=== PATIENT | male | born 1975 | race Caucasian/White ===

== ENCOUNTER 2017-06-16 19:28 | Emergency (ER) | payer OTHER ==
[~2017-06-16] VITALS: Ht 172.7 cm; Wt 113.4 kg
[~2017-06-16 19:28] MED LIST: AMOX500 PO; AZIT250 PO; Aldactone50 MG PO; CEPH500 PO; CLIN300 PO; CYCL10 PO; Coreg12.5 MG PO; DIAZ10; ERYT.5TO BOTHEYES; HYDACE5 PO; IBUP800 PO; LASIX; LISI20; Lanoxin250 MCG PO; METH10; METH40; NAPR500 PO; NEOPOLHCSU OT; OLME20 PO; OXYACE10 PO; OXYACE5T PO; OXYC1L; OXYC5 PO; PENVK500 PO; PROCODE120 PO; Percocet 5-3251 EACH PO; Prinivil10 MG PO; RXNEOPOLHC AD; TRAM50 PO
[2017-06-16] MEDS ORDERED: FURO20 PO (20:18)
[2017-06-16] MEDS ORDERED: CARV6.25 PO (20:19)
[2017-06-16 22:13] LABS: Influenza A Positive (NEGATIVE); Influenza B Negative (NEGATIVE)
[2017-06-16] MEDS ORDERED: Mucinex600 MG PO (22:36)
[2017-06-16] MEDS ORDERED: BENZ100A PO (22:36)
[2017-06-16] MEDS ORDERED: Pseudoephedrine30 MG PO (22:36)
[2018-04-07] MEDS ORDERED: DEEP SEA44 ML INH (11:49)
== END 2017-06-16 22:48 | disposition home or self-care (01) ==
LOC: ER 19:28
PROVIDERS: Physician Assistant
DX: J10.1 Influenza due to other identified influenza virus with other respiratory manifestations (principal); Z79.899 Other long term (current) drug therapy; Z87.891 Personal history of nicotine dependence
CPT/HCPCS: 71046; 87804; 99284

== ENCOUNTER 2017-07-12 15:25 | Emergency (ER) | payer OTHER ==
[~2017-07-12] VITALS: Ht 172.7 cm; Wt 113.4 kg
[~2017-07-12 15:25] MED LIST changes: +BENZ100A PO; +CARV6.25 PO; +FURO20 PO; +Mucinex600 MG PO; +Pseudoephedrine30 MG PO
[2018-04-07] MEDS ORDERED: DEEP SEA44 ML INH (11:49)
== END 2017-07-12 16:55 | disposition home or self-care (01) ==
LOC: ER 15:25
DX: L60.0 Ingrowing nail (principal); Z79.899 Other long term (current) drug therapy; I50.9 Heart failure, unspecified; Z87.891 Personal history of nicotine dependence
CPT/HCPCS: 99282

== ENCOUNTER 2019-09-17 20:54 | Emergency (ER) | payer OTHER ==
[~2019-09-17 20:54] MED LIST changes: +DEEP SEA44 ML INH
[2019-09-17] MEDS ORDERED: Norco 5-325 Ta1 EACH PO (21:51)
[2019-09-17 22:15] LABS: BASOPHILS ABSOLUTE AUTO 0.03 K/mm3 (0.00-0.23); BASOPHILS PERCENT AUTO 1 % (0-2); EOSINOPHILS ABSOLUTE AUTO 0.06 K/mm3 (0.00-0.68); EOSINOPHILS PERCENT AUTO 2 % (0-6); Hematocrit 38.7 % (37.0-53.0); Hemoglobin 13.3 g/dL (13.5-17.5); IMMATURE GRAN ABSOLUTE AUTO 0.01 K/mm3 (0.00-0.10); IMMATURE GRAN PERCENT AUTO 0 % (0-1); LYMPHOCYTES ABSOLUTE AUTO 1.66 K/mm3 (0.84-5.20); LYMPHOCYTES PERCENT AUTO 42 % (21-46); MONOCYTES ABSOLUTE AUTO 0.45 K/mm3 (0.16-1.47); MONOCYTES PERCENT AUTO 11 % (4-13); Mean Corpuscular HGB 34.8 pg (26.0-34.0); Mean Corpuscular HGB Conc 34.4 g/dL (31.5-36.5); Mean Corpuscular Volume 101 fL (80-100); Mean Platelet Volume 12.1 fL (9.1-12.4); NEUTROPHILS ABSOLUTE AUTO 1.79 K/mm3 (1.96-9.15); NEUTROPHILS PERCENT AUTO 45 % (41-73); RDW Coefficient Variation 12.3 % (11.7-14.2); RDW Standard Deviation 46.2 fL (35.1-46.3); Red Blood Cell Count 3.82 M/mm3 (4.30-5.90)
[2019-09-17 22:18] LABS: FLAG (Sample Judgement Flag) Positive; Platelet Count 40 K/mm3 (150-400)
[2019-09-17 22:30] LABS: Pathology Slide Review Needed Yes (No); SLIDE REVIEW Yes
[2019-09-17 22:31] LABS: ANISOCYTOSIS 1+ /hpf (0-1+)
[2019-09-17 22:32] LABS: HYPOCHROMASIA 1+ /hpf (0-1+); PLATELET COUNT ESTIMATE 39 K/mm3 (Normal)
== END 2019-09-17 22:42 | disposition home or self-care (01) ==
PROVIDERS: Emergency Medicine
DX: S42.001D Fracture of unspecified part of right clavicle, subsequent encounter for fracture with routine healing (principal); I50.9 Heart failure, unspecified; Z79.899 Other long term (current) drug therapy; Z87.891 Personal history of nicotine dependence

== ENCOUNTER 2019-09-19 19:47 | Emergency (ER) | payer OTHER ==
[~2019-09-19] VITALS: Ht 175.3 cm; Wt 104.3 kg
[~2019-09-19 19:47] MED LIST changes: +Norco 5-325 Ta1 EACH PO
[2019-09-19 20:37] LABS: BASOPHILS ABSOLUTE AUTO 0.03 K/mm3 (0.00-0.23); BASOPHILS PERCENT AUTO 1 % (0-2); EOSINOPHILS ABSOLUTE AUTO 0.08 K/mm3 (0.00-0.68); EOSINOPHILS PERCENT AUTO 2 % (0-6); Hematocrit 35.3 % (37.0-53.0); IMMATURE GRAN ABSOLUTE AUTO 0.01 K/mm3 (0.00-0.10); IMMATURE GRAN PERCENT AUTO 0 % (0-1); LYMPHOCYTES ABSOLUTE AUTO 1.33 K/mm3 (0.84-5.20); LYMPHOCYTES PERCENT AUTO 40 % (21-46); MONOCYTES ABSOLUTE AUTO 0.43 K/mm3 (0.16-1.47); MONOCYTES PERCENT AUTO 13 % (4-13); Mean Corpuscular HGB 34.8 pg (26.0-34.0); Mean Corpuscular Volume 102 fL (80-100); Mean Platelet Volume 11.7 fL (9.1-12.4); NEUTROPHILS ABSOLUTE AUTO 1.45 K/mm3 (1.96-9.15); NEUTROPHILS PERCENT AUTO 44 % (41-73); RDW Coefficient Variation 12.2 % (11.7-14.2); RDW Standard Deviation 46.5 fL (35.1-46.3); Red Blood Cell Count 3.45 M/mm3 (4.30-5.90); White Blood Cell Count 3.33 K/mm3 (4.00-11.30)
[2019-09-19 20:39] LABS: Platelet Count 39 K/mm3 (150-400)
[2019-09-19 20:53] LABS: Alanine Aminotransfer (ALT/SGP 40 U/L (12-78); Albumin, Blood 2.6 g/dL (3.4-5.0); Albumin/Globulin Ratio 0.6 (0.8-1.8); Alk Phos 178 U/L (50-136); Anion Gap 7 mmol/L (6-16); Aspartate Aminotrans (AST/SGOT 56 U/L (12-37); Bilirubin, Total 1.8 mg/dL (0.1-1.0); Blood Urea Nitrogen 14 mg/dL (8-24); Bun/Creatinine Ratio 18.4 (12.0-20.0); CO2, Blood 25 mmol/L (21-32); Calcium, Blood 8.1 mg/dL (8.5-10.1); Chloride, Blood 105 mmol/L (98-108); Creatinine, Blood 0.76 mg/dL (0.60-1.20); Globulin, Blood 4.2 g/dL (2.2-4.0); Glomerular Filtration Rate >60 (60-); Glucose, Blood 97 mg/dL (70-99); Potassium, Blood 4.1 mmol/L (3.5-5.5); Sodium, Blood 137 mmol/L (136-145); Total Protein, Blood 6.8 g/dL (6.4-8.2)
== END 2019-09-19 21:22 | disposition left against medical advice (07) ==
LOC: ER 19:47
PROVIDERS: Physician Assistant
DX: Z53.21 Procedure and treatment not carried out due to patient leaving prior to being seen by health care provider (principal)
CPT/HCPCS: 36415; 80053; 85025; 99283

== ENCOUNTER 2020-08-04 11:57 | Emergency (ER) | payer OTHER ==
[~2020-08-04] VITALS: Ht 172.7 cm; Wt 97.5 kg
[2020-08-04 12:40] LABS: BASOPHILS ABSOLUTE AUTO 0.02 K/mm3 (0.00-0.23); BASOPHILS PERCENT AUTO 1 % (0-2); EOSINOPHILS ABSOLUTE AUTO 0.06 K/mm3 (0.00-0.68); EOSINOPHILS PERCENT AUTO 2 % (0-6); Hematocrit 40.1 % (37.0-53.0); Hemoglobin 14.2 g/dL (13.5-17.5); IMMATURE GRAN ABSOLUTE AUTO 0.01 K/mm3 (0.00-0.10); IMMATURE GRAN PERCENT AUTO 0 % (0-1); LYMPHOCYTES ABSOLUTE AUTO 1.17 K/mm3 (0.84-5.20); LYMPHOCYTES PERCENT AUTO 33 % (21-46); MONOCYTES ABSOLUTE AUTO 0.33 K/mm3 (0.16-1.47); MONOCYTES PERCENT AUTO 9 % (4-13); Mean Corpuscular HGB 33.6 pg (26.0-34.0); Mean Corpuscular HGB Conc 35.4 g/dL (31.5-36.5); Mean Corpuscular Volume 95 fL (80-100); Mean Platelet Volume 11.3 fL (9.1-12.4); NEUTROPHILS ABSOLUTE AUTO 1.97 K/mm3 (1.96-9.15); NEUTROPHILS PERCENT AUTO 55 % (41-73); RDW Coefficient Variation 12.5 % (11.7-14.2); RDW Standard Deviation 43.8 fL (35.1-46.3); Red Blood Cell Count 4.22 M/mm3 (4.30-5.90); White Blood Cell Count 3.56 K/mm3 (4.00-11.30)
[2020-08-04 13:11] LABS: Alanine Aminotransfer (ALT/SGP 82 U/L (12-78); Albumin, Blood 3.1 g/dL (3.4-5.0); Albumin/Globulin Ratio 0.8 (0.8-1.8); Alk Phos 263 U/L (50-136); Anion Gap 6 mmol/L (6-16); Aspartate Aminotrans (AST/SGOT 87 U/L (12-37); Bilirubin, Total 1.7 mg/dL (0.1-1.0); Blood Urea Nitrogen 8 mg/dL (8-24); Bun/Creatinine Ratio 13.7 (12.0-20.0); CO2, Blood 25 mmol/L (21-32); Calcium, Blood 8.5 mg/dL (8.5-10.1); Chloride, Blood 105 mmol/L (98-108); Creatinine, Blood 0.58 mg/dL (0.60-1.20); Globulin, Blood 4.1 g/dL (2.2-4.0); Glomerular Filtration Rate >60 (60-); Glucose, Blood 104 mg/dL (70-99); Sodium, Blood 136 mmol/L (136-145); Total Protein, Blood 7.2 g/dL (6.4-8.2)
[2020-08-04 14:16] LABS: Platelet Count 39 K/mm3 (150-400)
== END 2020-08-04 12:44 | disposition left against medical advice (07) ==
LOC: ER 11:57
PROVIDERS: Emergency Medicine
DX: R10.9 Unspecified abdominal pain (principal); Z53.21 Procedure and treatment not carried out due to patient leaving prior to being seen by health care provider
CPT/HCPCS: 80053; 83690; 85025

== ENCOUNTER 2021-08-05 03:53 | Emergency (ER) | payer BC, OTHER ==
[~2021-08-05] VITALS: Ht 172.7 cm; Wt 93.0 kg
[2021-08-05] MEDS ORDERED: LOSARTAN POTASS25 M2 PO (04:07)
[2021-08-05] MEDS ORDERED: Bisoprolol Fuma10 MG PO (04:08)
[2021-08-05 04:23] LABS: BASOPHILS ABSOLUTE AUTO 0.02 K/mm3 (0.00-0.23); BASOPHILS PERCENT AUTO 1 % (0-2); EOSINOPHILS ABSOLUTE AUTO 0.04 K/mm3 (0.00-0.68); EOSINOPHILS PERCENT AUTO 1 % (0-6); Hematocrit 39.8 % (37.0-53.0); Hemoglobin 13.9 g/dL (13.5-17.5); IMMATURE GRAN ABSOLUTE AUTO 0.02 K/mm3 (0.00-0.10); IMMATURE GRAN PERCENT AUTO 1 % (0-1); LYMPHOCYTES ABSOLUTE AUTO 1.03 K/mm3 (0.84-5.20); LYMPHOCYTES PERCENT AUTO 37 % (21-46); MONOCYTES ABSOLUTE AUTO 0.28 K/mm3 (0.16-1.47); MONOCYTES PERCENT AUTO 10 % (4-13); Mean Corpuscular HGB Conc 34.9 g/dL (31.5-36.5); Mean Corpuscular Volume 97 fL (80-100); Mean Platelet Volume 11.8 fL (9.1-12.4); NEUTROPHILS ABSOLUTE AUTO 1.37 K/mm3 (1.96-9.15); NEUTROPHILS PERCENT AUTO 50 % (41-73); RDW Coefficient Variation 12.9 % (11.7-14.2); RDW Standard Deviation 46.5 fL (35.1-46.3); Red Blood Cell Count 4.09 M/mm3 (4.30-5.90); White Blood Cell Count 2.76 K/mm3 (4.00-11.30)
[2021-08-05 04:38] LABS: Platelet Count 32 K/mm3 (150-400)
[2021-08-05 04:41] LABS: Alanine Aminotransfer (ALT/SGP 97 U/L (12-78); Albumin, Blood 2.8 g/dL (3.4-5.0); Albumin/Globulin Ratio 0.7 (0.8-1.8); Alk Phos 179 U/L (50-136); Anion Gap 6 mmol/L (6-16); Aspartate Aminotrans (AST/SGOT 107 U/L (12-37); Bilirubin, Total 2.1 mg/dL (0.1-1.0); Blood Urea Nitrogen 7 mg/dL (8-24); Bun/Creatinine Ratio 11.2 (12.0-20.0); CO2, Blood 25 mmol/L (21-32); Calcium, Blood 8.3 mg/dL (8.5-10.1); Chloride, Blood 111 mmol/L (98-108); Creatinine, Blood 0.63 mg/dL (0.60-1.20); Globulin, Blood 4.1 g/dL (2.2-4.0); Glomerular Filtration Rate >60 (60-); Glucose, Blood 118 mg/dL (70-99); Potassium, Blood 3.6 mmol/L (3.5-5.5); Sodium, Blood 142 mmol/L (136-145); Total Protein, Blood 6.9 g/dL (6.4-8.2)
[2021-08-05 05:02] LABS: Magnesium, Blood 1.8 mg/dL (1.6-2.4)
== END 2021-08-05 07:32 | disposition home or self-care (01) ==
LOC: ER 03:53
PROVIDERS: Student in an Organized Health Care Education/Training Program
DX: R07.89 Other chest pain (principal); R06.02 Shortness of breath; R11.2 Nausea with vomiting, unspecified; F17.200 Nicotine dependence, unspecified, uncomplicated
CPT/HCPCS: 36415; 71045; 80053; 83735; 83880; 84484; 85025; 93005; 93010; 93246; 96365; 96375; 99285-25; J2765; J3475; J7030